=== PATIENT | male | born 1960 | race Two or more races ===

== ENCOUNTER 2020-02-22 10:50 | Emergency (ER) | payer SELFPAY ==
[~2020-02-22] VITALS: Ht 162.6 cm; Wt 100.1 kg
[2020-02-22 10:51] VITALS: BP 144/76
== END 2020-02-22 11:00 | disposition left against medical advice (07) ==
LOC: M ED 10:50
DX: Z53.21 Procedure and treatment not carried out due to patient leaving prior to being seen by health care provider (principal)